=== PATIENT | female | born 1980 | race Caucasian/White ===

== ENCOUNTER 2018-01-17 11:39 | Emergency (ER) | payer OTHER ==
[~2018-01-17] VITALS: Ht 175.3 cm; Wt 80.9 kg
[2018-01-17 11:45] VITALS: Ht 175.3 cm; Wt 80.9 kg
[2018-01-17] MEDS ORDERED: LAMICTAL150 MG PO (11:47)
[2018-01-17] MEDS ORDERED: TRAZODONE HCL50 MG PO (11:48)
[2018-01-17] MEDS ORDERED: BUPRENORPHIN-N1 EACH SL (11:48)
[2018-01-17 12:13] LABS: BASOPHILS 0.2 % (0-2); EOSINOPHILS 1.8 % (0-7); HEMATOCRIT 39.5 % (36.0-48.0); HEMOGLOBIN 13.5 g/dL (12-16); IMMATURE GRANULOCYTES 0.2 % (0-5); LYMPHOCYTES 36.7 % (15-50); MCH 30.2 pg (26.0-34.0); MCHC 34.2 g/dL (31.0-37.0); MCV 88.4 fL (80.0-100.0); MEAN PLATELET VOLUME 9.4 fL (7.4-10.4); MONOCYTES 7.1 % (2-11); PLATELET COUNT 241 10x3/uL (130-400); RBC 4.47 10x6/uL (4.00-5.40); RDW 13.7 % (11.5-14.5); WBC 5.1 10x3/uL (4.8-10.8)
[2018-01-17 12:41] LABS: ALKALINE PHOSPHATASE 102 U/L (46-116); ALT (SGPT) 20 U/L (10-68); BILIRUBIN - TOTAL 0.68 mg/dL (0.2-1.3); CALC OSMOLALITY 276 mosm/kg (275-300); CALCIUM 8.3 mg/dL (8.5-10.1); CARBON DIOXIDE 25.7 mmol/L (21.0-32.0); CHLORIDE - SERUM 103 mmol/L (98-107); CREATININE - SERUM 0.8 mg/dL (0.6-1.3); GLUCOSE 97 mg/dL (74-106); PROTEIN - SERUM 7.6 g/dL (6.4-8.2); SODIUM 139 mmol/L (136-145); UREA NITROGEN 10 mg/dL (7-18); eGFR NON AFRICAN AMERICAN 86 mL/min (90-120)
[2018-01-17 12:52] LABS: CKMB 0.7 U/L (0.0-3.6); CREATINE KINASE 73 UL (21-215)
[2018-01-17 12:55] LABS: TROPONIN-I < 0.017 ng/mL (0.000-0.060)
[2018-01-17] MEDS ORDERED: VOLTAREN75 MG PO (13:41)
[2018-01-17 14:58] VITALS: BP 107/62
== END 2018-01-17 14:35 | disposition home or self-care (01) ==
LOC: D.ER 11:39
PROVIDERS: Family Medicine
DX: R07.81 Pleurodynia (principal); G40.909 Epilepsy, unspecified, not intractable, without status epilepticus; K21.9 Gastro-esophageal reflux disease without esophagitis; F17.200 Nicotine dependence, unspecified, uncomplicated